=== PATIENT | male | born 1980 | race Caucasian/White ===

== ENCOUNTER 2019-08-13 06:51 | Emergency (ER) | payer BC ==
[2019-08-13] MEDS ORDERED: Diphtheria,Pertussis(Acell),Tetanus Vaccine 0.5 ML SDV IM ONE (07:45)
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
== END 2019-08-13 08:43 ==
LOC: JP.ED 06:51
DX: T21.21XA Burn of second degree of chest wall, initial encounter (principal); T22.291A Burn of second degree of multiple sites of right shoulder and upper limb, except wrist and hand, initial encounter; T31.11 Burns involving 10-19% of body surface with 10-19% third degree burns; I10 Essential (primary) hypertension; Z23 Encounter for immunization; Z79.899 Other long term (current) drug therapy; Z87.891 Personal history of nicotine dependence; X03.0XXA Exposure to flames in controlled fire, not in building or structure, initial encounter
CPT/HCPCS: 16030; 90471; 90715; 99284-25